=== PATIENT | male | born 1955 | race Caucasian/White ===

== ENCOUNTER 2017-10-16 07:21 | Outpatient (CLI) | payer OTHER ==
--- NOTE | 2017-10-16 14:34 | CT ---
CT BRAIN WITH AND WITHOUT CONTRAST CT MAXILLOFACIAL WITH AND WITHOUT CONTRAST: Date: 10/16/17 HISTORY: 61-year-old male status post repair of multiple facial bone fractures from prior trauma. Headache. Ev aluate for possible mucocele of the frontal sinuses after surgical repair. FINDINGS: Again noted are the extensive, previously described facial bone displaced fractures, including zygoma ticomaxillary complex (ZMC), and LeFort Types II and III, and probably I; naso-orbitoethmoidal (KATYA), and the displaced fracture of the left mandibular ramus. That left mandibular ramus fracture does no t have ORIF hardware, remains displaced, with overlap of fracture fragments, and has nonunion. There are plate and screws fixating the contralateral right mandibular ramus, with complete healing of that fracture. There has been interval healing changes of the multiple fractures, with multiple plate and screw metallic hardware. There was a wide osseous defect involving the posterior wall of bilateral frontal sinuses on 09/13/16 , with air in that sinus contiguous with bifrontal subdural pneumocephalus air. A portion of the cont ents of the lumen of the frontal sinuses was of soft tissue attenuation. Now, the entire intraluminal contents of the bilateral frontal sinuses consist of low attenuation (ap proximately 10 HU), crisscrossed by lace-like mild hyperdensities. There continues to be absence of a lmost the entire posterior wall of the frontal sinuses. In contrast, the frontal recesses, all of the bilateral ethmoid air cells (including the supraorbital recesses of the ethmoid air cells), nasal cavity, bilateral maxillary sinuses, and sphenoid sinus, a re clear. Their anatomy is distorted due to the distortion of the osseous brady due to the prior frac tures, but there is no mucosal thickening, fluid level, or polyp, involving these chambers. The right maxillary sinus volume is especially small. Bilateral tympanomastoid cavities are clear. There is an adjacent right anterior frontal region of encephalomalacia and gliosis, corresponding to sequelae after the cerebritis of the right frontal lobe that was demonstrated on the 09/22/16 MRI of the brain. There is also right frontal small chronic extra-axial space enlargement filled with fluid (presumably CSF), due to the adjacent volume loss of the right frontal lobe. The ventricles are norm al in size and configuration. There is no mass effect or midline shift. There is no abnormal intra-ax ial enhancement. The previously demonstrated dislocated right lens has been surgically removed. [ IMPRESSION: 1. Status post multiple open reduction and internal fixations of very many facial bone fractures. 2. Interval healing of many of the fractures with union, including the right mandibular ramus fractu re. 3. The left mandibular ramus fracture demonstrates nonunion, with residual displacement and overlap of fracture fragments. 4. The postsurgical bilateral frontal sinuses are totally opacified, while the rest of the sinuses a re clear. The attenuation is that of fluid rather than fat, and therefore this is favored to be a muc ocele of the frontal sinuses rather than scar tissue. 5. Status post right lensectomy. 6. Right frontal lobe encephalomalacia and gliosis. POS: [facility]
== END 2017-10-16 07:22 | disposition home or self-care (01) ==
LOC: SCSCT 07:21
PROVIDERS: ATTEND Family Medicine
DX: S09.93XA Unspecified injury of face, initial encounter (principal); S02.641D Fracture of ramus of right mandible, subsequent encounter for fracture with routine healing; S02.64 Fracture of ramus of mandible; S02.92XD Unspecified fracture of facial bones, subsequent encounter for fracture with routine healing; Z98.890 Other specified postprocedural states; G93.89 Other specified disorders of brain; J34.89 Other specified disorders of nose and nasal sinuses
CPT/HCPCS: 70470; 70488; 82565

== ENCOUNTER 2018-10-19 07:44 | Outpatient (CLI) | payer OTHER ==
[2018-10-19] MEDS ORDERED: Gadobenate Dimeglumine 529 MG/1 ML (20ML VIAL) ONE (09:00)
--- NOTE | 2018-10-19 09:43 | MRI ---
BRAIN MRI WITH AND WITHOUT CONTRAST: Date: 10-19-18 Comparison: 09-22-16 History: Re-evaluate brain parenchyma following surgery. Technique: Multi-planar, multisequence MR imaging of the brain obtained with and without contrast. FINDINGS: The diffusion weighted imaging demonstrates no evidence for acute infarction. Bilateral frontal sinuses are opacified, demonstrating increased T2 signal. Ethmoid air cells, spheno id sinuses, and mastoid air cells appear grossly unremarkable. The left maxillary sinus appears grossly unremarkable. There is a volume loss and mucosal thickening involving the right maxillary sinus. Arterial flow voids at the axial level of the skull base appear unremarkable on the T2 weighted imagi ng. There are focal areas of increased T2 signal involving the subcortical white matter of bilateral occi pital lobes, right greater than left, with adjacent cortical thinning suggesting bilateral occipital encephalomalacia. Similarly, there is focal T2 hyperintensity within the subcortical white matter in the inferior media l anterior left frontal lobe, less conspicuous than on the prior examination, suggesting left frontal lobe encephalomalacia. The post contrast imaging demonstrates no abnormal intraaxial enhancement. There is nonspecific dural enhancement noted bilaterally involving bilateral frontal lobes regions and to a lesser degree bilat eral occipital regions. There are areas of artifact and bilateral frontal regions suggesting artifact associated with prior e xtensive post-surgical change. The gradient echo imaging demonstrates mild blooming artifact in the a reas of above described encephalomalacia, likely on the basis of remote hemorrhage. IMPRESSION: Areas of encephalomalacia are noted within the left frontal region and bilateral occipital regions. E xtensive opacification of bilateral frontal sinuses noted with nonspecific diffuse dural enhancement, likely associated with prior post-surgical change. No evidence for acute infarction, mass effect, or abnormal intraaxial enhancement. POS: [facility]
== END 2018-10-19 07:45 | disposition home or self-care (01) ==
LOC: SCSMRI 07:44
PROVIDERS: ATTEND Oral & Maxillofacial Surgery
DX: S02.91XD Unspecified fracture of skull, subsequent encounter for fracture with routine healing (principal); G93.89 Other specified disorders of brain; Z98.890 Other specified postprocedural states
CPT/HCPCS: 70553; 82565; A9577

== ENCOUNTER 2019-04-18 10:16 | Emergency (ER) | payer OTHER ==
[~2019-04-18 10:16] MED LIST: Gadobenate Dimeglumine 529 MG/1 ML (20ML VIAL) ONE
--- NOTE | 2019-04-18 11:50 | CT ---
CT FACIAL BONES WITHOUT CONTRAST: HISTORY: Previous trauma. The patient is having discharge from a wound in the middle of his forehead. COMPARISON: 09/13/2016 TECHNIQUE: Noncontrast CT of the maxillofacial bones is performed and submitted for interpretation. FINDINGS: There is evidence of previous fracture with post surgical change involving the frontal calvarium, fro ntal sinuses, bridge of the nose, bilateral lateral orbital brady, nasal bones, bilateral anterior maxillary sinus, maxilla and mandible. Changes due to remote trauma involving the sinuses and the oss eous margins of the face and orbits and sinuses is noted. There is absence along the anterior margin of what is likely the calvarium. There is a small extracalvarial fluid collection with air att enuation measuring approximately 1.5 x 0.9 cm. An infected fluid collection cannot be excluded. Based on the images provided this collection appears to be extracranial. However, there does appear t o be absence of the inner table of the calvarium at multiple levels. The possibility of intracranial extension cannot be excluded given what appears to be thickening of the right and left f rontal dura. Further evaluation with pre and post contrast brain MRI may be positional. IMPRESSION: Redemonstration of multiple maxillary facial fractures. There is fluid and air in the anterior scalp, external to the calvarium. Extracranial infected fluid collection is suspected. Note, there is evidence of thickening of the right frontal dura and to a lesser extent the left frontal dura. Findin gs may be post traumatic. However positive intracranial extension cannot be excluded. Pre and post contrast brain MRI is recommended. CODE T Transcribed Date/Time: 04/18/2019 11:57 AM
--- NOTE | 2019-04-18 11:50 | CT ---
CT HEAD NONCONTRAST: Date: 04/18/19 COMPARISON: 09/22/16. INDICATION: Injury. FINDINGS: There is evidence of chronic post-traumatic sequelae of the frontal calvarium with underlying encepha lomalacia of the right frontal lobe, redemonstrated. Slight underlying medial left frontal encephalom alacia also present. There is also bilateral occipital lobe encephalomalacia. There is no acute intra cranial hemorrhage, mass effect, or midline shift. Exam is otherwise grossly stable. IMPRESSION: Chronic post-traumatic sequelae, without interval acute intracranial hemorrhage or mass effect. POS: [facility]
[2019-04-18 12:38] LABS: Eosinophils 1 % (0-10); Hemoglobin 15.3 g/dL (14.0-18.0); Lymphocytes 28 % (21-51); MDiff Complete? YES; Mean Corpuscular HGB CONC 32.3 g/dL (32.0-36.0); Mean Corpuscular Hemoglobin 29.4 pg (27.0-31.0); Mean Corpuscular Volume 90.9 fL (78.0-98.0); Mean Platelet Volume 9.1 fL (7.4-10.4); Monocytes 7 % (0-10); Neutrophil 63 % (42-75); Platelet Count 220 thou/uL (130-400); Platelet Morphology Comment Appears Adequate; Reactive Lymphocytes 1 % (0-10); White Blood Cell (WBC) Count 7.2 thou/uL (4.8-10.8)
[2019-04-18 12:45] LABS: ALT (SGPT) 22 U/L (8-55); AST (SGOT) 22 U/L (5-34); Albumin 4.4 g/dL (3.4-4.8); Alkaline Phosphatase 82 U/L (40-110); Anion Gap 14 mmol/L (10-20); BUN (Urea Nitrogen) 18 mg/dL (8.4-25.7); Bilirubin, Total 0.5 mg/dL (0.2-1.2); Calc. Creatinine Clearance 0 mL/min (70-130); Calcium 9.3 mg/dL (7.8-10.44); Carbon Dioxide 25 mmol/L (23-31); Chloride 106 mmol/L (98-107); Estimated GFR-MDRD 68; Globulin 2.9 g/dL (2.4-3.5); Glucose 127 mg/dL (80-115); Potassium 4.3 mmol/L (3.5-5.1); Protein, Total 7.3 g/dL (5.8-8.1); Sodium 141 mmol/L (136-145)
--- NOTE | 2019-04-18 13:41 | MRI ---
Brain MRI with and without contrast: 04/18/2019 COMPARISON: 10/19/2018 HISTORY: Recent CT examination demonstrated abnormal gas in an anterior midline location in the expec emily region of the frontal sinus. Clinical concern is for infection with reported draining wound in this region. TECHNIQUE: Multiplanar multisequence MR imaging of the brain is obtained with and without contrast FINDINGS: The paranasal sinuses are not well assessed on this examination secondary to postoperative change and motion as well as artifact from post surgical hardware. The paranasal sinuses and associated postoperative changes are better assessed on recent facial bone CT. The diffusion weighted imaging demonstrates no evidence for acute infarction. The axial gradient echo imaging demonstrates no evidence for intracranial hemorrhage. There is significant encephalomalacia involving the anterior aspect of the right frontal lobe as well as the posterior/medial right parietal lobe and bilateral occipital lobes. Encephalomalacia at all these locations demonstrates stability when compared to the 10/19/2018 examination. There is no eviden ce for an intra-axial abscess/fluid collection. There is no midline shift or mass effect. No ventricular enlargement. Postcontrast imaging demonstrates diffuse dural enhancement, most prominent in the frontal regions, l eft greater than right, unchanged when compared to the 10/19/2018 examination. No abnormal intra-axial enhancement is identified. There is a small air-fluid collection in a midline frontal location along the anterior margin of the midline frontal calvarium, better evaluated on recent CT exam. Arterial flow voids at axial level of skull base appear unremarkable on the T2-weighted imaging. IMPRESSION: This examination demonstrates no abnormal intra-axial enhancement or evidence of cerebrit is. Stable encephalomalacia. Air fluid collection in an anterior midline location within the soft tissues, better seen on CT examination, is concerning for infection.
== END 2019-04-18 14:22 | disposition home or self-care (01) ==
LOC: SCSER 10:16
DX: L08.9 Local infection of the skin and subcutaneous tissue, unspecified (principal)
CPT/HCPCS: 70450; 70486; 70553; 80053; 85025; A9577

== ENCOUNTER 2019-09-15 08:20 | Outpatient (CLI) | payer OTHER ==
--- NOTE | 2019-09-15 09:38 | MRI ---
BRAIN MRI WITH AND WITHOUT CONTRAST: HISTORY: Previous injury. Trauma. Evaluate for osteomyelitis. COMPARISON: 10/19/2018, 04/18/2019. FINDINGS: Gradient echo sequence: No hemorrhage. Calvarium: With exception of the frontal bone, appropriate T1 marrow signal intensity of the calvariu m. Midline brain parenchyma: Unremarkable. Cerebrum:No parenchymal mass, mass effect or midline shift. Stable encephalomalacia and gliosis invol ving bilateral occipital lobes as well as the right frontal lobe. Associated T2 and FLAIR hyperintensity. Ventricles: No evidence of hydrocephalus. Sinuses and mastoid air cells: Adequate aeration of the mastoid air cells, sphenoid sinuses, maxillar y sinuses and ethmoid air cells. Normal appearing frontal sinuses are not appreciated. There is heterogeneous T2 hyperintensity in the expected region of the frontal sinuses. There is absence of th e frontal bone, corresponding to recent CT. The area of T1 hypointensity with heterogeneous T2 hyperintensity measures 4.2 cm mediolateral by 1.2 cm anterior posterior. Postcontrast images demonst rate heterogeneous enhancement. Findings are presumed to represent post traumatic change with possible scar and postoperative changes. However, the possibility of a phlegmonous change in the soft tissues cannot be excluded. The largest T2 hyperintense focus measures 1.0 x 0.8 cm. A small infected fluid collection along the anterior left aspect of this region cannot be excluded. Additiona l smaller T2 hyperintense foci with peripheral enhancement are noted, with a more midline location. This lesion measures 0.8 x 0.7 cm. The adjacent calvarium does not demonstrate any obvious enhancemen t. There is marked enhancement involving the dura, greatest along the left and right frontal convexities. Diffusion: Central arterial flow is maintained. Absent restricted diffusion. Postcontrast images: No pathologic enhancement of the brain parenchyma. IMPRESSION: 1. Mixed signal intensity in the region of a previously noted frontal bone/frontal sinus defect/post surgical and posttraumatic change. The current signal intensities may represent phlegmonous change/postsurgical change. Small infected fluid collections cannot be entirely excluded. 2. No abnormal signal intensity in the adjacent osseous structures to suggest a frontal calvarial ost eomyelitis. 3. Extensive dural enhancement which is presumed to be reactive from previous surgery. If there is co ncern for an infectious process (meningitis), lumbar puncture can be performed. Transcribed Date/Time: 09/15/2019 9:59 AM
[2019-09-15] MEDS ORDERED: Magnevist 469MG/ML 20 ML VIAL ONE (13:51)
== END 2019-09-15 08:21 | disposition home or self-care (01) ==
LOC: MRI 08:20
PROVIDERS: ATTEND Oral & Maxillofacial Surgery
DX: M86.9 Osteomyelitis, unspecified (principal); Z98.890 Other specified postprocedural states
CPT/HCPCS: 70553; 82565; A9579

== ENCOUNTER 2020-12-19 08:02 | Outpatient (CLI) | payer BC ==
[2020-12-19] MEDS ORDERED: Magnevist 469MG/ML 20 ML VIAL ONE (09:03)
== END 2020-12-19 08:03 | disposition home or self-care (01) ==
LOC: BICMRI 08:02
PROVIDERS: ATTEND Oral & Maxillofacial Surgery
DX: M86.9 Osteomyelitis, unspecified (principal)
CPT/HCPCS: 70553; 82565; A9579

== ENCOUNTER 2021-10-22 09:54 | Outpatient (CLI) | payer MEDICARE ==
[~2021-10-22 09:54] MED LIST changes: -Gadobenate Dimeglumine 529 MG/1 ML (20ML VIAL) ONE; +Iopamidol 370 76% 100 ML VIAL ONE
== END 2021-10-22 09:55 | disposition home or self-care (01) ==
LOC: CT 09:54
PROVIDERS: ATTEND Oral & Maxillofacial Surgery
DX: M86.9 Osteomyelitis, unspecified (principal)
CPT/HCPCS: 70487; 76377; 82565; Q9967